=== PATIENT | male | born 1995 | race Caucasian/White ===

== ENCOUNTER → 2017-10-31 | Outpatient (CLI) | payer BC ==
--- NOTE | 2017-11-01 12:38 | Diagnostic Imaging Report ---
EXAMINATION: Bilateral diagnostic mammogram. INDICATION: Bilateral breast pain and lumps There are no prior studies available for comparison. At this time the patient does complain of pain in both breasts. He also states that there are lumps in both retroareolar regions. Markers are placed over the areas of concern. The current study was also evaluated with a Computer Aided Detection (CAD) system. There is a fair amount of fibroglandular tissue in both breasts. There is no primary or secondary sign of malignancy identified however. Even so, ultrasound would be recommend for further evaluation. IMPRESSION: There is no evidence for malignancy. There is no acute abnormality to account for the patient's breast pain either. Ultrasound would be recommended for further study. ACR BI-RADS Category 0: Incomplete. (Needs additional imaging evaluation). Result letter will be mailed to the patient. Note: At least 10% of breast cancer is not imaged by mammography. Dictated on workstation # [id number]
== END ==
LOC: RAD 08:27
PROVIDERS: ATTEND Nurse Practitioner Family
DX: N63.20 Unspecified lump in the left breast, unspecified quadrant (principal); N63.10 Unspecified lump in the right breast, unspecified quadrant
CPT/HCPCS: 76642; 77066